=== PATIENT | male | born 1965 | race Caucasian/White ===

== ENCOUNTER 2019-07-06 12:26 | Emergency (ER) | payer BC, SELFPAY ==
[2019-07-06 12:26] VITALS: BP 163/113; PULSE 69; RESP 18; TEMP 36.6; O2SAT 100; BMI 29.1
--- NOTE | 2019-07-06 12:37 | EKG12_ITS ---
Test Reason : SOB Blood Pressure : / mmHG Vent. Rate : 067 BPM Atrial Rate : 067 BPM P-R Int : 140 ms QRS Dur : 088 ms QT Int : 366 ms P-R-T Axes : 029 031 016 degrees QTc Int : 386 ms Normal sinus rhythm Normal ECG Confirmed by ERIKA SEQUEIRA, VISHAL ([id number]), web editor JULISA CHUA ([id number]) on 07/08/2019 8:31:30 AM Referred By: KARLIE Confirmed By:VISHAL JAMES MD
--- NOTE | 2019-07-06 12:37 | RAD_ITS ---
STUDY: X-RAY CHEST REASON FOR EXAM: Male, 54 years old. COUGH. HX OF CHEMO TECHNIQUE: Single AP portable view of the chest. COMPARISON: March 30, 2015 x-ray FINDINGS: There is minimal stable biapical thickening. There is no visualized focal infiltrate. There is no demonstrated pleural abnormality. Normal size heart. Normal mediastinum and bryanna. Normal visualized pulmonary arteries. Normal visualized aortic arch and descending thoracic aorta. There are diffuse degenerative changes of the visualized thoracic spine. Normal visualized ribs, clavicles, and shoulders. There is no demonstrated abnormality of the visualized soft tissue structures of the upper abdomen. RAD/Chest 1 View (Portable) IMPRESSION: Degenerative changes, as described above. No demonstrated acute cardiopulmonary process. Electronically Signed: Nahomy Allne MD at 13:08 EDT Tel , Service support ,
[2019-07-06] MEDS: Ipratropium/Albuterol Sulfate 3 ML AMPUL.NEB INHALATION (13:01)
[2019-07-06 13:05] VITALS: PULSE 73; RESP 16; O2SAT 100
--- NOTE | 2019-07-06 13:08 | ED.VISSUMM ---
- ER Visit Summary Date of Service: 07/06/19 Chief Complaint: Shortness of breath History of Present Illness: The patient is a 54 M presenting with shortness of breath. He states this started on Sunday. He has been using his inhaler for his asthma at home. On he called his primary care physician. At that time he was called in [facility]. When this was not helping on Sunday he again called his primary care physician and was prescribed prednisone. He has been taking this for the past 2 days. He complains of a chest tightness that is similar to the tightness he has when he has had asthma exacerbations in the past. He denies chest pain or pressure. He is not a smoker. He denies fever. He has had a productive cough. 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 He is not currently on anticoagulants. History of tongue cancer in remission. Physical Examination: Vitals are stable. Patient is afebrile. Alert no acute distress. Pulse ox 100% on room air. HEENT exam is unremarkable. Pharynx is normal. Neck is supple. Lungs are clear and equal bilaterally. Heart is regular rate and rhythm. Abdomen is soft nontender nondistended. Extremities are unremarkable. Skin is warm and dry. No rash No focal neurologic deficit. Remainder of exam is unremarkable. Emergency Department Course and Treatment: Patient was given DuoNeb aerosol. EKG is sinus rhythm rate of 67 with no acute ischemic changes. Chest x-ray shows degenerative changes. No demonstrated acute cardiopulmonary process. CBC, chemistries unremarkable other than glucose 120, BUN 28. Troponin is negative. D-dimer negative. Influenza and RSV are negative. On reevaluation patient complains of feeling anxious. He was given Ativan with some improvement. Delta troponin is obtained and is negative. Patient has history of bronchitis that has been improved with Zithromax in the past. He is given a prescription for Zithromax. He is advised to continue his prednisone and albuterol at home. Advised to continue social distancing and self quarantine. Advised to follow up with his primary care physician. Advised return ED for worsening complaints. Disposition: Discharge home Impression: Asthma, bronchitis This note was generated with Friendsigniaation software. It may contain incorrect words, spelling, and punctuation that were not noted in review of the chart prior to signing ED Disposition - Plan for ED Patient: Instructions: BRONCHITIS, Antiobiotic Treatment (Adult) Prescriptions: Azithromycin [Zithromax Z-Shad] 250 mg PO UD #1 box Prescription Printed Referrals: Óscar Gordon MD [Primary Care Provider] -
[2019-07-06 13:11] LABS: Absolute Lymphocyte Count 0.55 X10^3/uL (0.83-4.51); Absolute Neutrophil Count 7.8 X10^3/uL (2.0-7.7); Basophil# 0.05 X10^3/uL; Basophil% 0.6 % (0-1); Eosinophil# 0.02 X10^3/uL; Eosinophils% 0.2 % (0-5); Hematocrit 41.8 % (40-54); Hemoglobin 14.1 g/dL (13.0-16.5); Lymphocyte # 0.55 X10^3/ul (4.0); Lymphocyte % 6.2 % (19-41); Mean Corp Hgb Conc 33.7 g/dL (32-36); Mean Corpuscular Hgb 32.3 pg (27.0-32.0); Mean Corpuscular Volume 95.9 fL (80-94); Mean Platelet Vol. 9.5 fl (6.2-12.0); Monocyte# 0.36 X10^3/uL; Monocyte% 4.1 % (0-10); NRBC Flagged by Analyzer 0 % (0-5); Neutrophil # 7.81 X10^3/uL (2.7-7.7); Neutrophil % 88.4 % (47-70); POSITIVE DIFFERENTIAL YES; Platelet Count 192 K/mm3 (150-450); RBC Distribution Width CV 12.2 % (11.6-14.6); RBC Distribution Width SD 42.9 fl (35.1-43.9); Red Blood Count 4.36 M/mm3 (4.6-6.2); White Blood Count 8.8 K/mm3 (4.4-11.0)
[2019-07-06 13:12] LABS: Differential Indicated SCAN CRITERIA MET
[2019-07-06 13:31] LABS: D-Dimer Quantitative (DVT/PE) <= 0.27 FEU/ug/m (0.27-0.49)
[2019-07-06 13:34] LABS: Anion Gap 8 (5-15); BUN 28 mg/dL (7-18); BUN/Creat Ratio 23.7 RATIO (10-20); Calcium,Total 9.3 mg/dL (8.5-10.1); Chloride 107 mmol/L (98-107); Creatinine, Serum 1.18 mg/dL (0.70-1.30); EST Glomerular Filtration Rate 68 mL/min (>60); Est Glom Filt Rate - Afr Amer 82 mL/min (>60); Estimated Creatinine Clearance 76.72 ml/min; Glucose 120 mg/dL (74-106); Potassium 4.7 mmol/L (3.5-5.1); Sodium Level 140 mmol/L (136-145)
[2019-07-06] MEDS: LORazepam 1 MG Tablet PO (14:16)
[2019-07-06 15:00] VITALS: BP 153/95; PULSE 67; RESP 20; O2SAT 99
[2019-07-06 17:00] VITALS: BP 160/91; PULSE 66; RESP 18; TEMP 37.1; O2SAT 99
--- NOTE | 2019-07-06 17:10 | ED.DEP ---
ED Disposition - Plan for ED Patient: Instructions: BRONCHITIS, Antiobiotic Treatment (Adult) Prescriptions: Azithromycin [Zithromax Z-Shad] 250 mg PO UD #1 box Referrals: Óscar Gordon MD [Primary Care Provider] -
[2019-07-06] MEDS: Azithromycin 250 MG Tablet 500 MG PO (17:32)
== END 2019-07-06 18:07 | disposition home or self-care (01) ==
LOC: ED 13:25
PROVIDERS: Emergency Provider Emergency Medicine; PCP Family Medicine
DX: J45.909 Unspecified asthma, uncomplicated (principal); Z86.711 Personal history of pulmonary embolism; Z85.810 Personal history of malignant neoplasm of tongue; Z79.51 Long term (current) use of inhaled steroids; Z79.52 Long term (current) use of systemic steroids
CPT/HCPCS: 71045; 80048; 84484; 85025; 85379; 87804; 87807; 93005; 94640; 99285; A4216

== ENCOUNTER → 2020-03-30 09:01 | Outpatient (CLI) | payer BC, SELFPAY ==
--- NOTE | 2020-03-30 09:06 | RAD_ITS ---
STUDY: X-RAY CHEST REASON FOR EXAM: Male, 55 years old. HX OF TONGUE SARCOMA -- FOLLOW UP 5 YEARS POST -- NO CHEST COMPLAINTS TECHNIQUE: PA and lateral views of the chest. COMPARISON: July 06, 2019 FINDINGS: There are chronic and mild interstitial fibrotic changes of the lungs. Cystic emphysematous changes are present bilaterally. No focal consolidation is seen. There is no demonstrated pleural abnormality. Normal size heart. Normal mediastinum and bryanna. Normal visualized pulmonary arteries. Normal visualized aortic arch and descending thoracic aorta. There are diffuse degenerative changes of the visualized thoracic spine. Normal visualized ribs, clavicles, and shoulders. There is no demonstrated abnormality of the visualized soft tissue structures of the upper abdomen. RAD/Chest PA and Lateral IMPRESSION: 1. There are chronic and mild interstitial fibrotic changes of the lungs. Cystic emphysematous changes are present bilaterally. No focal consolidation is seen. Electronically Signed: Urban Chavez MD at 23:52 EST , Service support ,
== END ==
PROVIDERS: PCP Family Medicine; Visit Provider Otolaryngology
DX: Z85.810 Personal history of malignant neoplasm of tongue (principal)
CPT/HCPCS: 71046

== ENCOUNTER 2020-05-06 18:22 | Emergency (ER) | payer BC, SELFPAY ==
[2020-05-06 18:22] VITALS: BP 153/101; PULSE 89; RESP 16; TEMP 36.2; O2SAT 98
[2020-05-06 18:23] VITALS: BP 153/101; PULSE 81; RESP 16; TEMP 36.2; O2SAT 97; BMI 29.9
--- NOTE | 2020-05-06 18:38 | EKG12_ITS ---
Test Reason : HYPERTENSION Blood Pressure : / mmHG Vent. Rate : 078 BPM Atrial Rate : 078 BPM P-R Int : 142 ms QRS Dur : 084 ms QT Int : 358 ms P-R-T Axes : 025 019 -06 degrees QTc Int : 408 ms Normal sinus rhythm Normal ECG Confirmed by TIKI SEQUEIRA, LEORA ([id number]), editor at large ALEXIS DAY ([id number]) on 05/11/2020 10:45:11 AM Referred By: HI CÁRDENAS Confirmed By:LEORA FAIRBANKS MD
--- NOTE | 2020-05-06 18:40 | ED.DCSUM_ITS ---
History of Present Illness Chief Complaint: Hypertension Informant: Patient Onset: Weeks Context: Gradual Onset Timing: Intermittent Current Severity: Mild Maximum Severity: Moderate Narrative: The patient is a 55-year-old male with medical history significant for hypertension who presents to the emergency department with elevated blood pressure. The patient states that he has been compliant with his 100 mg of metoprolol and 40 mg of lisinopril. He states he has been checking his blood pressure in the evenings. He states for the past week, he has been markedly e levated with blood pressures in the 180s to 200s. He states when is high, he will have a mild frontal headache which then resolves. He denies chest pain or shortness of breath. He denies visual change. He denies any weakness or numbness. He states he is otherwise been in his normal state of health. Prior similar symptoms: Yes Recent Illness/Hospitalization: No Past Medical History - Allergies and Home Meds Allergies/Adverse Reactions: Allergies No Known Allergies Allergy (Verified 05/06/20 18:55) Primary Care Physician: Óscar Gordon MD [Primary Care Provider] - Prior records reviewed: Yes Past Medical History: - - Hypertension, hyperlipidemia Surgical History: noncontributory Smoking Status: Never smoker Review of Systems General: Denies: Chills, Fever, Sweats Eyes: Denies: Visual changes - bilaterally, Diplopia ENT: Denies: Rhinorrhea, Sore throat Cardiovascular: Denies: Chest pain, Palpitations Respiratory: Denies: Dyspnea, Cough, Dyspnea on exertion Gastrointestinal: Denies: Abdominal pain, Nausea, Vomiting, Diarrhea, Melena, Hematochezia Genitourinary: Denies: Dysuria, Hematuria, Frequency Musculoskeletal: Denies: Back pain, Extremity Pain Skin: Denies: Rash, Wounds Neurological: Denies: Headache, Weakness, Numbness Physical Exam Vital Signs/Narrative: Vital Signs Temp Pulse Resp BP Pulse Ox 05/06/20 18:23 97.1 F L 81 16 153/101 H 97 05/06/20 18:22 97.1 F L 89 16 153/101 H 98 Inital Vital Signs reviewed: Yes General: Well nourished, Well developed, No Acute Distress Head: Normocephalic, Atraumatic Eyes: Perrl, EOMI ENT: Moist mucous membranes, No rhinorrhea Neck: Supple, Nontender Cardiovascular: Regular rate, Regular rhythm, No murmurs Respiratory: No distress, CTA bilaterally, Chest nontender Abdomen: Soft, Nontender, Nondistended, Normal bowel sounds Back: Nontender, Normal Inspection Extremities: Nontender, No edema Skin: Normal color, No rash Neurological: Alert, Oriented x3, Cranial nerves II-XII grossly intact, Normal Strength, Normal Sensation Psychological: Normal affect, Normal Mood Diagnostic/Tx/Re-eval - Rhythm Strip Rhythm Strip: Sinus Rhythm Rate: 80 Ectopy: None - EKG Initial EKG Interpretation: Sinus Rhythm, No Acute Injury Pattern Prior: Unchanged - Medical Decision Making The patient presents with elevated blood pressure. On arrival, his blood pressure is minimally elevated but improved from prior. He had no chest pain or shortness of breath. His neurologic exam is reassuring. He is not cephalopathic. He has no focal neurologic complaints. Metabolic work-up was pursued. EKG demonstrates sinus rhythm. There is no acute ischemic change. Screening labs are unremarkable. On reevaluation, he is resting comfortably. The patient is already on 100 mg of Toprol and 40 mg of lisinopril. He has been having elevated blood pressure. With mild headache. I do feel that it would be prudent to start him twice a day dosing of his metoprolol on top of these other medications to see if we get his blood pressure under better control and have him follow-up with his primary care. He is a able with this plan of care. Impression 1. Hypertension ED Disposition - Plan for ED Patient: Instructions: ED Hypertension, New (Begin Treatment) Prescriptions: Metoprolol Tartrate 50 mg PO DINNER #30 tab Prescription Printed Referrals: Óscar Gordon MD [Primary Care Provider] -
[2020-05-06] MEDS: Acetaminophen 500 MG Tablet 1000 MG PO (19:05)
[2020-05-06 19:07] LABS: Absolute Lymphocyte Count 0.91 X10^3/uL (0.83-4.51); Absolute Neutrophil Count 5.4 X10^3/uL (2.0-7.7); Basophil# 0.04 X10^3/uL; Basophil% 0.6 % (0-1); Eosinophil# 0.14 X10^3/uL; Hematocrit 38.8 % (40-54); Hemoglobin 13.4 g/dL (13.0-16.5); Lymphocyte # 0.91 X10^3/ul (4.0); Lymphocyte % 12.9 % (19-41); Mean Corp Hgb Conc 34.5 g/dL (32-36); Mean Corpuscular Hgb 32.9 pg (27.0-32.0); Mean Corpuscular Volume 95.3 fL (80-94); Mean Platelet Vol. 9.3 fl (6.2-12.0); Monocyte# 0.57 X10^3/uL; Monocyte% 8.1 % (0-10); NRBC Flagged by Analyzer 0 % (0-5); Neutrophil # 5.38 X10^3/uL (2.7-7.7); Neutrophil % 75.8 % (47-70); Platelet Count 188 K/mm3 (150-450); RBC Distribution Width CV 12.2 % (11.6-14.6); RBC Distribution Width SD 42.6 fl (35.1-43.9); Red Blood Count 4.07 M/mm3 (4.6-6.2); White Blood Count 7.1 K/mm3 (4.4-11.0)
[2020-05-06 19:23] LABS: ALB/GLOB Ratio 1.4 RATIO (0.9-2.4); AST(SGOT) 38 U/L (15-37); Alanine Aminotransfer ALT/SGPT 114 U/L (16-61); Alkaline Phosphatase 59 U/L (45-117); Anion Gap 5 (5-15); BUN 23 mg/dL (7-18); BUN/Creat Ratio 16.9 RATIO (10-20); Calcium,Total 9.2 mg/dL (8.5-10.1); Chloride 105 mmol/L (98-107); Creatinine, Serum 1.36 mg/dL (0.70-1.30); EST Glomerular Filtration Rate 57 mL/min (>60); Est Glom Filt Rate - Afr Amer 69 mL/min (>60); Estimated Creatinine Clearance 67.73 ml/min; Globulin 2.9 g/dL (2.2-4.2); Glucose 101 mg/dL (74-106); Potassium 4.2 mmol/L (3.5-5.1); Protein, Total 6.9 g/dL (6.4-8.2); Sodium Level 138 mmol/L (136-145)
[2020-05-06 19:35] VITALS: BP 152/92; PULSE 69; RESP 17; O2SAT 97
[2020-05-06 19:43] VITALS: BP 152/92; PULSE 69; RESP 17; O2SAT 97
== END 2020-05-06 19:44 | disposition home or self-care (01) ==
LOC: ED 19:04
PROVIDERS: Emergency Provider Emergency Medicine; PCP Family Medicine
DX: I10 Essential (primary) hypertension (principal); E78.5 Hyperlipidemia, unspecified; Z79.899 Other long term (current) drug therapy
CPT/HCPCS: 80053; 85025; 93005; 99285; A4216

== ENCOUNTER 2020-05-07 20:26 | Emergency (ER) | payer BC, SELFPAY ==
[2020-05-06 18:23] VITALS: BMI 29.9
[2020-05-07 20:28] VITALS: BP 228/120; PULSE 71; RESP 15; TEMP 36.6; O2SAT 99; BMI 28.8
--- NOTE | 2020-05-07 20:47 | CT_ITS ---
STUDY: CT BRAIN WITHOUT CONTRAST REASON FOR EXAM: Male, 55 years old. Headache. Hypertension. History of tongue cancer. RADIATION DOSAGE (If Supplied By Facility): CTDIvol = ( 44.99 ) mGy, DLP = ( 846.73 ) mGycm TECHNIQUE: Transaxial CT imaging of the brain was performed without administration of intravenous contrast material. Individualized dose optimization techniques were used for this CT. COMPARISON: None. FINDINGS: There is no acute bleed or infarct. There are normal white matter tracts. The ventricles are normal in configuration. There is no hydrocephalus. The visualized paranasal sinuses are clear. The mastoid air cells are well aerated. There is no skull fracture. CT/Brain/Head without Contrast IMPRESSION: No acute intracranial abnormality. Electronically Signed: Andrew Flowers MD at 21:13 EST Tel , Service support ,
[2020-05-07 21:38] VITALS: BP 154/90; PULSE 62; RESP 16; O2SAT 98
--- NOTE | 2020-05-07 21:42 | ED.DCSUM_ITS ---
- ER Visit Summary Date of Service: 05/07/20 Chief Complaint: High blood pressure and headache History of Present Illness: The patient is a [address] Gordon. He reports that his blood pressures been much higher than usual over the past 3 days. He was seen in the emergency department yesterday and had 50 mg of metoprolol added in the evening. He spoke with his primary care physician today and he told him to increase this to 100 mg. He took this at 430. Despite that his blood pressures remained elevated. Patient reports that he has an aching frontal headache that is 6 out of 10 at worst and 1 out of 10 currently. He took Tylenol with significant relief. He states that nothing makes this worse. He denies any other complaints. No chest pain or shortness of breath. Physical Examination: Vitals: 97.9, 228/120, 71, 15, 99% on room air which is not hypoxic. General: Well-nourished and well-developed. Head: Normocephalic atraumatic. Neck: Supple, no lymphadenopathy. No JVD. Nontender. Cardiovascular: Regular rate and rhythm. No murmurs. Respiratory: No respiratory distress. Clear to auscultation bilaterally. Abdominal: Soft, nontender, nondistended, normal bowel sounds. No guarding, rebound, or peritoneal signs. Back: Nontender. Extremities: Nontender, no edema. Skin: Normal color, no rash. Neurologic: Alert and oriented ?3. Cranial nerves II through XII are intact. Normal strength and sensation. Psych: Normal affect. Test Results: Clinical Impression(s) from Imaging Studies Brain CT 05/07/20 20:47 IMPRESSION: No acute intracranial abnormality. Electronically Signed: Andrew Flowers MD at 21:13 EST Tel , Service support , Patient had labs yesterday that were not repeated. His CBC showed a hematocrit of 38.8, segmented for 72, lymphocytes 13. CMP showed a BUN of 23, creatinine 1.36, AST of 38, ALT of 114. Emergency Department Course and Treatment: Patient was observed in the emergency department. He refused pain medications. Without any treatment of his blood pressure decreased to 131/83. He is resting comfortably. Treatment Plan: At this time I don't think that any change the patient's blood pressure medication is indicated. He is instructed to continue to take the increased dose of metoprolol as recommended by his primary care physician. Follow-up with him in 3 to 5 days for another exam. Return to the emergency department for any worsening symptoms. Disposition: To home in improved and stable condition. Impression: 1. Hypertension. 2. Headache. This note was generated with Janalakshmiation software. It may contain incorrect words, spelling, and punctuation that were not noted in review of the chart prior to signing ED Disposition - Plan for ED Patient: Instructions: ED High Blood Pressure ... Referrals: Óscar Gordon MD [Primary Care Provider] - 3-5 Days
[2020-05-07 21:59] VITALS: BP 137/84
== END 2020-05-07 22:05 | disposition home or self-care (01) ==
LOC: ED 21:05
PROVIDERS: Emergency Provider Emergency Medicine; PCP Family Medicine
DX: R51.9 Headache, unspecified (principal); I10 Essential (primary) hypertension; J45.909 Unspecified asthma, uncomplicated; Z79.899 Other long term (current) drug therapy; Z79.51 Long term (current) use of inhaled steroids
CPT/HCPCS: 70450; 99283

== ENCOUNTER 2020-09-21 10:13 | Emergency (ER) | payer BC, SELFPAY ==
[2020-09-21 10:14] VITALS: BP 132/85; PULSE 74; RESP 18; TEMP 36.8; O2SAT 97; BMI 30.1
--- NOTE | 2020-09-21 10:29 | CT_ITS ---
STUDY: CTA CHEST REASON FOR EXAM: Male, 55 years old. SOB, suspect PE RADIATION DOSAGE (If Supplied By Facility): CTDIvol = ( 11.20 ) mGy, DLP = ( 445.70 ) mGycm TECHNIQUE: The examination was performed with the intravenous administration of IV 100mL Isovue-370. Post-processing of the angiographic images was performed, with multiplanar reformation and 3D reconstruction. Individualized dose optimization techniques were used for this CT. COMPARISON: Comparison is made with prior CT scan of the chest dated 12/13/2015. FINDINGS: Normal enhancement of the main pulmonary artery and right and left pulmonary arteries. Normal enhancement of the bilateral peripheral pulmonary arteries. There is no demonstrated pulmonary embolism. Normal thoracic aorta and visualized great vessels. There is no demonstrated aortic dissection. Normal heart and pericardium. Normal mediastinum. Normal hilar regions. Normal visualized trachea and bronchi. The lungs are well expanded. Minimal increased linear markings at the lung bases suggest mild atelectasis and/or scarring. Normal pleura. Normal chest wall structures. Normal osseous structures. There is diffuse fatty infiltration of liver. CT/CTA Chest W/WO Contrast IMPRESSION: No acute abnormality is seen. Electronically Signed: Bernardo Orellana MD at 12:06 EDT , Service support ,
--- NOTE | 2020-09-21 10:29 | EKG12_ITS ---
Test Reason : SOB Blood Pressure : / mmHG Vent. Rate : 068 BPM Atrial Rate : 068 BPM P-R Int : 150 ms QRS Dur : 086 ms QT Int : 374 ms P-R-T Axes : 018 009 001 degrees QTc Int : 397 ms Normal sinus rhythm Cannot rule out Inferior infarct , age undetermined Abnormal ECG Confirmed by ERIKA SEQUEIRA, VISHAL ([id number]), brands editor ALEXIS DAY ([id number]) on 09/24/2020 8:24:43 AM Referred By: Confirmed By:VISHAL JAMES MD
--- NOTE | 2020-09-21 10:29 | RAD_ITS ---
STUDY: X-RAY CHEST REASON FOR EXAM: Male, 55 years old. Chest pain TECHNIQUE: Single AP portable view of the chest. COMPARISON: Comparison is made with prior chest radiograph dated 03/30/2020. FINDINGS: EKG electrodes are seen. The lungs are clear and expanded. There is no demonstrated pleural abnormality. Normal size heart. Normal mediastinum and bryanna. Normal visualized pulmonary arteries. Normal visualized aortic arch and descending thoracic aorta. There are diffuse degenerative changes of the visualized thoracic spine. Normal visualized ribs, clavicles, and shoulders. There is no demonstrated abnormality of the visualized soft tissue structures of the upper abdomen. RAD/Chest 1 View (Portable) IMPRESSION: No acute abnormality is seen. Electronically Signed: Bernardo Orellana MD at 12:03 EDT , Service support ,
--- NOTE | 2020-09-21 10:43 | ED.VIS.DYS ---
HPI History of Present Illness Chief Complaint: Shortness of Breath Informant: patient Narrative Narrative: Patient is a 55-year-old man with history of tongue cancer, bilateral PE and asthma presenting with shortness of breath. Patient states for the past few days he has had worsening fatigue and dyspnea on exertion. He states whenever he does minimal exertion like changing the sheets or getting ready to leave the house he gets a tightness in his chest. When he sits down he starts to feel better. Patient notes that he just recently turned from [place]. He states he is not any blood thinners and denies a history of blood clots to me however chart me shows he has a history of bilateral PEs. Patient also notes that he had Covid in January and just had a second Covid vaccine 10 days ago. Patient denies any chest pain. He states he has a chronic cough which is unchanged. He Nuys any fever or chills. He denies any sick contacts. He denies any history of coronary artery disease and remotely had a stress test in the past that he thinks was normal. He has hypertension and borderline hyper lipidemia but does not take any medication for his cholesterol. He does have a history of mitral valve prolapse. PE Risk Factors: Positive for Prior DVT or PE and Recent travel [facility] Medical History (Updated 09/21/20 @ 14:[address] Leslie Willoughby, ) History of esophageal cancer History of pulmonary embolus (PE) Hypertension Home Medications albuterol sulfate [ProAir HFA] 2 puff INHALATION Q4H PRN PRN 02/01/15 [History Last Taken Unknown] metoprolol tartrate 100 mg PO DAILY 02/01/15 [History Last Taken 02/01/15] lorazepam 0.5 mg PO BID PRN 03/24/15 [History Last Taken Unknown] fluticasone propion-salmeterol 1 puff INHALATION BID 05/06/20 [History Last Taken Unknown] lisinopril 40 mg PO DAILY 05/06/20 [History Last Taken Unknown] prednisone 40 mg PO DAILY #10 tab 09/21/20 [Rx Last Taken Unknown] Allergy/AdvReac Type Severity Reaction Status Date / Time No Known Allergies Allergy Verified 09/21/20 10:14 Social History Smoking Status: Never smoker [facility] ED Constitutional Constitutional ED: Reports sweats; Denies chills, fatigue, fever(s) or weakness Eyes Eyes: Denies blurry vision or other visual disturbances ENT ENT ED: Denies rhinorrhea or sore throat Cardiovascular Cardiovascular: Reports chest pain; Denies orthopnea, palpitations or racing heartbeat Respiratory/Chest Respiratory/Chest: Reports dyspnea and dyspnea on exertion; Denies cough, orthopnea or sputum Gastrointestinal Gastrointestinal: Denies abdominal pain, nausea or vomiting Genitourinary Genitourinary ED: Denies decreased urination or dysuria Musculoskeletal Musculoskeletal: Reports other Details: no leg swelling ; Denies extremity pain Integumentary Denies new lesions or rash Neurologic Neurologic: Denies paresthesias or weakness Psychiatric Psychiatric: Denies anxiety or depression Hematologic/Lymphatic Hematologic/Lymphatic: Denies easy bleeding or easy bruising EXAM Physical Exam Const Vital Signs: 09/21/20 10:14 09/21/20 10:29 09/21/20 10:47 Temperature 98.3 F Temperature Source Temporal Pulse Rate 74 75 Respiratory Rate 18 16 Respiratory Effort Respiratory Pattern Blood Pressure 132/85 H 103/64 Blood Pressure Mean 100 77 Pulse Ox 97 99 Oxygen Delivery Method Room Air Room Air Room Air 09/21/20 10:49 09/21/20 11:35 09/21/20 12:41 Temperature Temperature Source Pulse Rate 64 71 Respiratory Rate 13 13 Respiratory Effort Normal Respiratory Pattern Normal Blood Pressure 139/86 H Blood Pressure Mean 103 Pulse Ox 97 Oxygen Delivery Method Room Air Positive alert and oriented x3 General Appearance ED: Negative for pallor HEENT Reports normocephalic and moist mucous membranes normocephalic Mouth ED: Yes moist mucous membranes normal Eyes PERRL and EOMs intact bilaterally General Eye ED: Yes normal appearance of both eyes Pupil: PERRL Neck supple and no JVD Lymph Lymphatic: no lymphadenopathy noted Chest Wall inspection of chest normal and palpation of chest normal Resp normal respiratory effort, normal air movement and clear to auscultation bilaterally Auscultation: Negative for rhonchi or wheezes Cardio regular rate and regular rhythm Peripheral Pulses: pulses 2+ throughout GI non-tender and non-distended Palpation: soft Back/Spine no CVA tenderness and normal to inspection Extremity normal to inspection and full ROM Neuro oriented x3, moves all extremities and no focal motor deficits Sensorium / Orientation: alert Psych mental status grossly normal and thought process normal Skin no rashes or lesions noted and no petechiae General Skin Exam: Negative for pallor Lesions: no lesions Rashes: no rashes MDM MDM MDM Narrative Medical decision making narrative: Patient is evaluated for chest tightness associated with exertion. Is intermittent and not all the time. Clinically does not appear to be fluid overloaded or to have CHF. I did obtain a CTA because I have a high pretest suspicion for PE and he does have a history of bilateral PE. This is negative. There is no acute pathology seen on the CT. Cardiac work-up is negative. He does not have any ischemic EKG changes and does not have any acute EKG changes at all. Troponin is negative x2. His BNP is 3.8. His TSH is normal. No signs of infection. He is not anemic. I wonder if this could be some type of asthma exacerbation as he does not like his asthma is been acting up more. He is given an aerosol in the emergency room will be discharged home with a burst of steroids. Patient is instructed needs to follow-up outpatient with his PCP as he likely needs a stress test. Patient is counseled on signs and symptoms requiring return to the emergency room. Patient verbalizes agreement and understand this plan. Patient discharged home in stable and improved condition. Lab Data Labs: Laboratory Results - last 24 hr 09/21/20 09/21/20 09/21/20 10:41 10:41 10:41 WBC 5.8 RBC 4.21 L Hgb 13.8 Hct 39.7 L MCV 94.3 H MCH 32.8 H MCHC 34.8 RDW Std Deviation 40.4 RDW Coeff of Portia 11.7 Plt Count 201 MPV 9.1 Immature Gran % (Auto) 0.900 Neut % (Auto) 73.2 H Lymph % (Auto) 12.6 L Fulton % (Auto) 10.0 Eos % (Auto) 2.4 Baso % (Auto) 0.9 Absolute Neuts (auto) 4.3 Absolute Lymphs (auto) 0.73 L Nucleated RBC % 0 Sodium 135 L Potassium 4.7 Chloride 104 Carbon Dioxide 26.0 Anion Gap 5 BUN 22 H Creatinine 1.09 Estim Creat Clear Calc 82.07 Est GFR (MDRD) Af Amer 90 Est GFR (MDRD) Non-Af 74 BUN/Creatinine Ratio 20.2 H Glucose 122 H Calcium 8.8 Troponin I < 0.015 B-Natriuretic Peptide 3.8 TSH 2.11 09/21/20 13:53 WBC RBC Hgb Hct MCV MCH MCHC RDW Std Deviation RDW Coeff of Portia Plt Count MPV Immature Gran % (Auto) Neut % (Auto) Lymph % (Auto) Fulton % (Auto) Eos % (Auto) Baso % (Auto) Absolute Neuts (auto) Absolute Lymphs (auto) Nucleated RBC % Sodium Potassium Chloride Carbon Dioxide Anion Gap BUN Creatinine Estim Creat Clear Calc Est GFR (MDRD) Af Amer Est GFR (MDRD) Non-Af BUN/Creatinine Ratio Glucose Calcium Troponin I < 0.015 B-Natriuretic Peptide TSH Radiography Chest X-Ray - ED: 1 View, Read by ED Physician, Read by Radiologist and Normal Diagnostic Testing: Radiology Impression Chest CTA 09/21/20 10:29 IMPRESSION: No acute abnormality is seen. Electronically Signed: Bernardo Orellana MD at 12:06 EDT , Service support , Chest X-Ray 09/21/20 10:29 IMPRESSION: No acute abnormality is seen. Electronically Signed: Bernardo Orellana MD at 12:03 EDT , Service support , Rhythm Strip Rhythm Strip: Sinus Rhythm Rate: 68 Ectopy: None EKG Initial EKG: Attestation: I personally reviewed and interpreted this EKG as follows: Interpretation: Sinus Rhythm Comments: Normal sinus rhythm at a rate of 68 Normal axis Normal intervals Nonspecific T wave inversion lead III No change compared to prior EKG on 07/06/2019 Discharge Plan Triage Chief Complaint: Shortness of Breath ED Provider: Leslie Willoughby Dx/Rx/DC Orders Clinical Impression: Acute dyspnea Instructions: ED Asthma, Acute (Adult), ED Dyspnea Prescriptions: New prednisone 20 mg tablet 40 mg PO DAILY Qty: 10 RF: 0 No Action metoprolol tartrate 50 MG tablet 100 mg PO DAILY RF: 0 albuterol sulfate [ProAir HFA] 1 PUFF inhaler 2 puff inhalation Q4H PRN PRN (Reason: Sob &/Or Wheezing) RF: 0 lorazepam 0.5 MG tablet 0.5 mg PO BID PRN (Reason: Anxiety) RF: 0 fluticasone propion-salmeterol 1 EACH blister with device 1 puff INHALATION BID RF: 0 lisinopril 40 MG tablet 40 mg PO DAILY RF: 0 Primary Care Provider: Óscar Gordon Referrals: Óscar Gordon MD [Primary Care Provider] - Activity Restrictions/Additional Instructions: The exact cause of your symptoms is not clear however your work-up here was largely normal. He did not appear to be having a heart attack. There is no blood clots. There is no pneumonia. Please follow-up with your primary care doctor for the evaluation of your breathing as well as of your heart. You might benefit from a stress test. Is possible that your symptoms could be associated your asthma to be placed on a short course of steroids for this. Use your inhaler as prescribed. Disposition Disposition: Home, self care
[2020-09-21] MEDS: Aspirin 81 MG TAB.CHEW 324 MG PO (10:45)
[2020-09-21 10:47] VITALS: BP 103/64; PULSE 75; RESP 16; O2SAT 99
[2020-09-21 10:52] LABS: Absolute Lymphocyte Count 0.73 X10^3/uL (0.83-4.51); Absolute Neutrophil Count 4.3 X10^3/uL (2.0-7.7); Basophil# 0.05 X10^3/uL; Basophil% 0.9 % (0-1); Eosinophil# 0.14 X10^3/uL; Eosinophils% 2.4 % (0-5); Hematocrit 39.7 % (40-54); Hemoglobin 13.8 g/dL (13.0-16.5); Lymphocyte # 0.73 X10^3/ul (0.83-4.51); Lymphocyte % 12.6 % (19-41); Mean Corp Hgb Conc 34.8 g/dL (32-36); Mean Corpuscular Hgb 32.8 pg (27.0-32.0); Mean Corpuscular Volume 94.3 fL (80-94); Mean Platelet Vol. 9.1 fl (6.2-12.0); Monocyte# 0.58 X10^3/uL; NRBC Flagged by Analyzer 0 % (0-5); Neutrophil # 4.26 X10^3/uL (2.7-7.7); Neutrophil % 73.2 % (47-70); Platelet Count 201 K/mm3 (150-450); RBC Distribution Width CV 11.7 % (11.6-14.6); RBC Distribution Width SD 40.4 fl (35.1-43.9); Red Blood Count 4.21 M/mm3 (4.6-6.2); White Blood Count 5.8 K/mm3 (4.4-11.0)
[2020-09-21 11:10] LABS: Anion Gap 5 (5-15); BUN 22 mg/dL (7-18); BUN/Creat Ratio 20.2 RATIO (10-20); Calcium,Total 8.8 mg/dL (8.5-10.1); Chloride 104 mmol/L (98-107); Creatinine, Serum 1.09 mg/dL (0.70-1.30); EST Glomerular Filtration Rate 74 mL/min (>60); Est Glom Filt Rate - Afr Amer 90 mL/min (>60); Estimated Creatinine Clearance 82.07 ml/min; Glucose 122 mg/dL (74-106); Potassium 4.7 mmol/L (3.5-5.1); Sodium Level 135 mmol/L (136-145); Thyroid Stim Hormone (TSH) 2.11 uIU/mL (0.358-3.74)
[2020-09-21 11:20] LABS: BNP,B-Type NATRIURETIC PEPTIDE 3.8 pg/mL (0-100)
[2020-09-21] MEDS: Albuterol 2.5 MG/3 ML VIAL.NEB. INHALATION (11:34)
[2020-09-21 11:35] VITALS: PULSE 64; RESP 13
[2020-09-21 12:41] VITALS: BP 139/86; PULSE 71; RESP 13; O2SAT 97
[2020-09-21 13:01] VITALS: O2SAT 98
--- NOTE | 2020-09-21 13:10 | CHAPLAIN ---
Type of Pastoral Visit _x__ Initial Visit ___ Follow-up Visit ___ On-call Visit ___ General Patient Visit ___ Spiritual Assessment ___ Family Conference ___ Bereavement ___ Rapid Response ___ Code Blue ___ Other (describe below) Pastoral Care Referral From ___ Patient _x__ Family ___ Nurse ___ Physician ___ Bike Assembler ___ Machine Cementer ___ Other (describe below) Sacrament/Intervention _x__ Active listening ___ Anointing ___ Hindu ___ Bereavement ___ Communion ___ Barb exploration ___ _x__ Life review x Prayer ___ Reconciliation ___ Sacrament of Sick _x__ Supportive presence ___ Wedding ___ Other (describe below) Pastoral Comments
== END 2020-09-21 15:04 | disposition home or self-care (01) ==
PROVIDERS: Emergency Provider Emergency Medicine; PCP Family Medicine
DX: R06.00 Dyspnea, unspecified (principal); E78.5 Hyperlipidemia, unspecified; I10 Essential (primary) hypertension; J45.909 Unspecified asthma, uncomplicated; Z86.718 Personal history of other venous thrombosis and embolism; Z79.51 Long term (current) use of inhaled steroids; Z79.899 Other long term (current) drug therapy
CPT/HCPCS: 71045; 71275; 80048; 83880; 84443; 84484; 85025; 93005; 94640; 99284; Q9967; A4216

== ENCOUNTER → 2020-10-28 06:41 | Outpatient (CLI) | payer BC, SELFPAY ==
--- NOTE | 2020-10-28 18:28 | STRESSREP_ITS ---
Stress Test Report Pharmacologic myocardial perfusion stress test. 55-year-old male with a history of shortness of breath mitral valve prolapse. Medications lisinopril, metoprolol, albuterol. Stress protocol: Resting EKG demonstrates normal sinus rhythm with a rate of 93 bpm normal intervals are noted. Resting EKG demonstrates a blood pressure of 200/110 mmHg. 0.4 mg of regadenoson was infused per usual protocol followed by rapid intravenous saline flush injection continuous EKG monitoring was performed. The maximum heart rate attained was 121 bpm which was 74% of max infected heart rate the maximum workload was 1 metabolic equivalent. At rest there were no ST or T wave changes noted to suggest abnormal flow reserve and at peak infusion nonspecific ST changes were noted with did not meet the criteria for ischemia. No clinical angina was noted. The final blood pressure was 152/98 mmHg. Myocardial perfusion protocol. 14.4 mCi of technetium 99m sestamibi was injected at rest. 0.4 mg of regadenoson was infused per usual protocol. At peak infusion 44.4 mCi of technetium 99m sestamibi was injected stress images were obtained stress and res t images were reconstructed and compared in the short axis vertical long and horizontal long axis. Gated images were also obtained. Perfusion SPECT analysis: Review of the stress images demonstrate normal uptake of tracer noted in all areas of the myocardium. The resting images similarly demonstrate normal uptake of tracer noted in all areas of the myocardium. No areas of reversibility are noted suggest ischemia and no previous infarct is noted. Gated SPECT analysis: The gated ejection fraction is 56%. Conclusion: Normal pharmacologic myocardial perfusion stress test. Preserved ejection fraction. Resting hypertension noted.
== END ==
PROVIDERS: PCP Family Medicine; Referring Provider Family Medicine; Visit Provider Family Medicine
DX: R06.02 Shortness of breath (principal); I10 Essential (primary) hypertension; I34.1 Nonrheumatic mitral (valve) prolapse
CPT/HCPCS: 78452; 93017; A9500; Q9957; A4216; J2785

== ENCOUNTER 2021-04-19 10:06 | Outpatient (CLI) | payer BC, SELFPAY ==
--- NOTE | 2021-04-19 10:20 | RAD_ITS ---
STUDY: X-RAY CHEST REASON FOR EXAM: Male, 56 years old. F/U AFTER TX. FOR HEAD AND NECK CARCINOMA TECHNIQUE: Single AP portable view of the chest. COMPARISON: None. FINDINGS: Ill-defined subpleural groundglass opacities are seen more prominent in the lung bases , may represent atypical pneumonia or viral pneumonia (COVID-19 ?). There is no demonstrated pleural abnormality. Normal size heart. Normal mediastinum and bryanna. Normal visualized pulmonary arteries. Normal visualized aortic arch and descending thoracic aorta. Normal visualized thoracic spine. There is degenerative osteoarthritis of the bilateral shoulders. There is no demonstrated abnormality of the visualized soft tissue structures of the upper abdomen. RAD/Chest PA and Lateral IMPRESSION: Ill-defined subpleural groundglass opacities are seen more prominent in the lung bases , may represent atypical pneumonia or viral pneumonia (COVID-19 ?). Electronically Signed: Rodrigo Licona MD at 2:20 EST Tel , Service support ,
== END 2021-04-19 23:59 | disposition short-term general hospital (02) ==
LOC: RAD 10:09
PROVIDERS: PCP Family Medicine; Referring Provider Otolaryngology; Visit Provider Otolaryngology
DX: Z08 Encounter for follow-up examination after completed treatment for malignant neoplasm (principal); Z85.89 Personal history of malignant neoplasm of other organs and systems
CPT/HCPCS: 71046

== ENCOUNTER 2021-12-19 18:44 | Emergency (ER) | payer BC, SELFPAY ==
[2021-12-19 18:45] VITALS: BP 120/90; PULSE 97; RESP 15; TEMP 36.7; O2SAT 99; BMI 29.1
[2021-12-19 19:10] VITALS: BP 120/90; PULSE 97; RESP 16; TEMP 36.7; O2SAT 99
--- NOTE | 2021-12-19 19:11 | EX.ED.DYSGE1 ---
HPI History of Present Illness Chief Complaint: Cold Sx Informant: patient Onset/Context/Timing Onset: Days (5 days) Context: Gradual Onset Timing: Waxes and wanes Current Severity: Mild Maximum Severity: Mild Narrative Narrative: Patient presents primarily secondary to sore throat. He states he started getting cold-like symptoms on . He has had a sore throat since that time but it did seem to be slightly worse this afternoon. No fevers been noted. He does have a mild cough. [facility] Medical History History of esophageal cancer History of pulmonary embolus (PE) Hypertension Home Medications albuterol sulfate 90 mcg/actuation aerosol inhaler (ProAir HFA) 2 puff inhalation Q4H PRN PRN Sob &/Or Wheezing 02/01/15 [History Last Taken Unknown] metoprolol tartrate 50 mg tablet 100 mg PO DAILY 02/01/15 [History Last Taken 02/01/15] lorazepam 0.5 mg tablet 0.5 mg PO BID PRN Anxiety 03/24/15 [History Last Taken Unknown] fluticasone 100 mcg-salmeterol 50 mcg/dose blistr powdr for inhalation 1 puff inhalation BID 05/06/20 [History Last Taken Unknown] lisinopril 40 mg tablet 40 mg PO DAILY 05/06/20 [History Last Taken Unknown] prednisone 20 mg tablet 40 mg PO DAILY #10 tabs 09/21/20 [Rx Last Taken Unknown] Allergy/AdvReac Type Severity Reaction Status Date / Time No Known Allergies Allergy Verified 12/19/21 18:45 Social History Smoking Status: Never smoker ROS ROS ED Constitutional Constitutional ED: Denies chills or fever(s) Eyes Eyes: Denies change in vision or discharge from eye(s) ENT ENT ED: Reports sore throat and other Details: Mild congestion ; Denies discharge from eye(s) or rhinorrhea Cardiovascular Cardiovascular: Denies chest pain or palpitations Respiratory/Chest Respiratory/Chest: Reports cough; Denies dyspnea Gastrointestinal Gastrointestinal: Denies abdominal pain, diarrhea, nausea or vomiting Genitourinary Genitourinary ED: Denies dysuria Musculoskeletal Musculoskeletal: Denies back pain or extremity pain Integumentary Denies Abrasions or rash Neurologic Neurologic: Denies headache(s) or weakness Allergic/Immunologic Allergic/Immunologic ED: Denies lip swelling or urticaria EXAM Physical Exam Narrative Exam Narrative: Patient speaks with a strong voice and is tolerating secretions well. Const Vital Signs: 12/19/21 18:45 12/19/21 19:10 12/19/21 19:29 Temperature 98.1 F 98.1 F Temperature Source Temporal Oral Pulse Rate 97 97 Respiratory Rate 15 16 Respiratory Effort Normal Non-Labored Respiratory Depth Normal Respiratory Pattern Normal Blood Pressure 120/90 H 120/90 H Blood Pressure Mean 100 100 Pulse Ox 99 99 Oxygen Delivery Method Room Air Room Air Room Air 12/19/21 20:30 Temperature Temperature Source Pulse Rate 99 Respiratory Rate 16 Respiratory Effort Respiratory Depth Respiratory Pattern Blood Pressure Blood Pressure Mean Pulse Ox 98 Oxygen Delivery Method Room Air Positive well nourished and well developed General Appearance ED: well developed HEENT Reports normocephalic and head/scalp atraumatic HEENT Narrative: Mild posterior pharyngeal drainage. Uvula midline. Eyes PERRL and EOMs intact bilaterally Neck supple Chest Wall inspection of chest normal and palpation of chest normal Resp normal respiratory effort and clear to auscultation bilaterally Cardio regular rate and regular rhythm GI normal to inspection, nondistended, normoactive bowel sounds Palpation: soft Extremity normal to inspection Neuro oriented x3 and no sensory deficits noted Sensorium / Orientation: alert Motor Exam: strength 5/5 throughout Psych mental status grossly normal Skin no rashes or lesions noted MDM MDM MDM Narrative Medical decision making narrative: Rapid strep sent along with COVID test. Portable chest x-ray ordered. Patient given naproxen and Cepacol lozenge. Lab Data Attestation: I reviewed the patient's lab results. Lab results narrative: Rapid COVID: Negative Rapid strep: Negative Radiography Chest X-Ray - ED: 1 View, Read by ED Physician, Chronic Changes and No Infiltrates Diagnostic Testing: Clinical Impression(s) from Imaging Studies Chest X-Ray 12/19/21 19:28 IMPRESSION: Mild interstitial thickening in the right lower lobe possibly due to focal inflammatory changes. Electronically Signed: Gerald Mercedes MD at 20:08 EDT , Treatment and Re-Evaluation Narrative: Chest x-ray per my interpretation shows chronic changes with no new focal infiltrate. Strep and COVID test are negative. Test results discussed with patient and at bedside. He is reassured with these findings. We discussed continued supportive care. Discharge Plan Triage Chief Complaint: Cold Sx Other Complaint: Sore Throat ED Provider: Siobhan Kent Dx/Rx/DC Orders Clinical Impression: Acute viral pharyngitis Instructions: ED Pharyngitis, Viral Prescriptions: No Action metoprolol tartrate 50 MG tablet 100 mg PO DAILY Label Comments: blood pressure albuterol sulfate [ProAir HFA] 1 PUFF inhaler 2 puff inhalation Q4H PRN PRN (Reason: Sob &/Or Wheezing) Label Comments: shortness of breath lorazepam 0.5 MG tablet 0.5 mg PO BID PRN (Reason: Anxiety) fluticasone propion-salmeterol 1 EACH blister with device 1 puff INHALATION BID Label Comments: inhale 1 puff by mouth and INTO THE LUNGS twice a day lisinopril 40 MG tablet 40 mg PO DAILY prednisone 20 mg tablet 40 mg PO DAILY Qty: 10 0RF Primary Care Provider: Óscar Gordon Referrals: Óscar Gordon MD [Primary Care Provider] - 1 Week if not improving Disposition Disposition: Home, Self Care
[2021-12-19] MEDS: Naproxen 500 MG Tablet PO (19:23)
--- NOTE | 2021-12-19 19:28 | RAD_ITS ---
STUDY: X-RAY CHEST REASON FOR EXAM: Male, 56 years old. cough TECHNIQUE: AP portable COMPARISON: 04/19/2021 FINDINGS: Mild interstitial prominence in the right lower lobe possibly representing mild infiltrate.. There is no demonstrated pleural abnormality. Normal size heart. Normal mediastinum and bryanna. Normal visualized pulmonary arteries. Normal visualized aortic arch and descending thoracic aorta. Dorsal spine demonstrates degenerative change. Normal visualized ribs, clavicles, and shoulders. There is no demonstrated abnormality of the visualized soft tissue structures of the upper abdomen. RAD/Chest 1 View (Portable) IMPRESSION: Mild interstitial thickening in the right lower lobe possibly due to focal inflammatory changes. Electronically Signed: Gerald Mercedes MD at 20:08 EDT ,
[2021-12-19 19:29] VITALS: O2SAT 99
[2021-12-19] MEDS: BENZOCAINE/MENTHOL 1 LOZENGE MUCOUS MEM (20:18)
[2021-12-19 20:30] VITALS: PULSE 99; RESP 16; O2SAT 98
== END 2021-12-19 20:40 | disposition home or self-care (01) ==
PROVIDERS: Emergency Provider Emergency Medicine; PCP Family Medicine; Visit Provider Emergency Medicine
DX: J02.8 Acute pharyngitis due to other specified organisms (principal); B97.89 Other viral agents as the cause of diseases classified elsewhere; I10 Essential (primary) hypertension; Z79.52 Long term (current) use of systemic steroids; Z79.899 Other long term (current) drug therapy; Z20.822 Contact with and (suspected) exposure to COVID-19
CPT/HCPCS: 71045; 87811; 87880; 99283

== ENCOUNTER 2023-07-20 05:09 | Emergency (ER) | payer BC, SELFPAY ==
[2023-07-20 05:11] VITALS: BP 194/156; PULSE 101; RESP 16; TEMP 36.7; BMI 30.2
[2023-07-20 05:19] VITALS: BP 197/100; PULSE 92
--- NOTE | 2023-07-20 05:30 | CT_ITS ---
EXAM: CT CERVICAL SPINE WITHOUT INTRAVENOUS CONTRAST CLINICAL INDICATION: Seroma TECHNIQUE: Helically acquired images were obtained of the cervical spine without intravenous contrast. 2D reformatted images were reviewed. This CT exam was performed using one or more of the following dose reduction techniques: automated exposure control, adjustment of the mA and/or kV according to patient size, and/or use of iterative reconstruction technique. RADIATION DOSE: Total DLP: 607.82 mGy-cm. COMPARISON: No relevant prior studies available. FINDINGS: Images are seen on a delayed basis. VERTEBRAE: Cervical vertebrae demonstrate normal curvature and alignment. No compression fracture, posterior element fracture or facet dislocation. The odontoid is intact. Left-sided laminectomy defects noted at the C3, C4, C5, and C6 levels. No abnormal fluid collection is seen in the region of the laminectomies, but there is an elongated midline fluid collection posterior to the C3-C7 spinous processes, with this thick-walled fluid collection measuring up to 3 cm in AP diameter by 2.5 cm in transverse diameter, by approximately 5 cm in cephalocaudal dimension. The fluid collection shows a thickened wall with surrounding fat stranding. The fluid collection does not definitely extend to the skin surface. No air bubbles are seen within this fluid collection. There is no associated destruction of the spinous processes. DISCS/SPINAL CANAL/NEURAL FORAMINA: The mid to lower cervical disc spaces show degenerative narrowing with endplate sclerosis, marginal osteophytes and uncinate hypertrophy. Broad-based annular bulges and surrounding osteophytes flatten the ventral aspect of the thecal sac at the degenerated levels, more severe at the C4/5 level. Multilevel neural foraminal encroachment is present due to uncinate hypertrophy. SOFT TISSUES: See above. No prevertebral soft tissue swelling. VASCULATURE: Minimal vascular calcification is noted within the neck. MASTOID AIR CELLS: Nonspecific fluid noted within a few of the left mastoid air cells. Right mastoid air cells are clear. LUNG APICES: Biapical pleural parenchymal scarring. Visualized upper ribs are intact. CT/Spine Cervical without Contras IMPRESSION: 1. Midline thick-walled fluid collection within the subcutaneous fat overlying the mid to lower cervical spinous processes, worrisome for abscess in view of the thickened wall and surrounding fat stranding. Aspiration could be utilized to further evaluate for infection versus postoperative seroma. No extension of this posterior fluid collection into the epidural space. No lytic osseous lesion. 3. Previous left laminectomy from C3 to C6. 4. Multilevel cervical degenerative disc disease. Electronically Signed: Maninder Stapleton MD at 7:53 EDT ,
--- NOTE | 2023-07-20 05:33 | EX.ED.DYSGE1 ---
HPI History of Present Illness Chief Complaint: Wound Check Informant: patient and spouse/S.O. Narrative Narrative: Patient is a 58-year-old male with past medical history of hypertension and asthma as well as recent cervical spine surgery on June 16, 2023. He states he has been doing well and underwent physical therapy just 2 days ago. He states that this morning he noticed that the wound was leaking. He states this is new for him and with the changes he is concerned about potential infection and therefore comes in for evaluation. Otherwise he denies any trauma fevers chills nausea vomiting diarrhea or dysuria PFSH PFS Medical History History of esophageal cancer History of pulmonary embolus (PE) Hypertension Home Medications albuterol sulfate 90 mcg/actuation aerosol inhaler (ProAir HFA) 2 puff inhalation Q4H PRN PRN Sob &/Or Wheezing 02/01/15 [History Last Taken Unknown] metoprolol tartrate 50 mg tablet 100 mg PO DAILY 02/01/15 [History Last Taken 02/01/15] fluticasone 100 mcg-salmeterol 50 mcg/dose blistr powdr for inhalation 1 puff inhalation BID 05/06/20 [History Last Taken Unknown] lisinopril 40 mg tablet 30 mg PO DAILY 05/06/20 [History Last Taken Unknown] amoxicillin 875 mg-potassium clavulanate 125 mg tablet 1 tab PO BID 7 days #14 tabs 07/20/23 [Rx Last Taken Unknown] hydrochlorothiazide 12.5 mg capsule 12.5 mg PO DAILY 07/20/23 [History Last Taken Unknown] Allergy/AdvReac Type Severity Reaction Status Date / Time No Known Allergies Allergy Verified 07/20/23 05:10 Social History Smoking Status: Never smoker ROS ROS ED Constitutional Constitutional ED: Denies chills or fever(s) ENT ENT ED: Denies sore throat Cardiovascular Cardiovascular: Denies chest pain Respiratory/Chest Respiratory/Chest: Denies cough or dyspnea Gastrointestinal Gastrointestinal: Denies abdominal pain, diarrhea, nausea or vomiting Genitourinary Genitourinary ED: Denies dysuria Musculoskeletal Musculoskeletal: Reports neck pain; Denies myalgias Integumentary Reports other Details: Positive draining wound ; Denies rash Neurologic Neurologic: Denies headache(s), paresthesias or weakness Hematologic/Lymphatic Hematologic/Lymphatic: Denies easy bleeding or easy bruising EXAM Physical Exam Const Vital Signs: 07/20/23 05:11 07/20/23 05:19 07/20/23 05:41 Temperature 98.1 F Temperature Source Oral Pulse Rate 101 H 92 75 Respiratory Rate 16 18 Blood Pressure 194/156 H 197/100 H 187/60 H Blood Pressure Mean 168 132 102 Pulse Ox Oxygen Delivery Method 07/20/23 07:41 Temperature Temperature Source Pulse Rate 80 Respiratory Rate 18 Blood Pressure 170/95 H Blood Pressure Mean 120 Pulse Ox 97 Oxygen Delivery Method Room Air Positive well nourished and well developed General Appearance ED: well developed; Negative for pallor HEENT HEENT Narrative: Normocephalic atraumatic Eyes PERRL and EOMs intact bilaterally General Eye ED: Negative for scleral icterus Neck supple Neck Narrative: Patient has a surgical incision in the midline of the posterior cervical spine consistent with history of previous spinal surgery. At the base of the incision around C7-T11 there is mild dehiscence of the wound with some surrounding soft tissue swelling and erythema and warmth. Manual pressure applied at this site produces serosanguineous fluid with sebaceous material. No lymphangitic streaking No nuchal rigidity or meningeal signs Resp normal respiratory effort and clear to auscultation bilaterally Cardio regular rate and regular rhythm Back/Spine Back/Spine Narrative: Soft tissue changes of the cervical spine as documented above Extremity normal to inspection Neuro oriented x3, CN's II-XII intact bilaterally and no sensory deficits noted Sensorium / Orientation: alert Motor Exam: strength 5/5 throughout Psych mental status grossly normal Skin Skin Narrative: Soft tissue changes consistent with seroma/hematoma status post surgery of the cervical spine as documented above General Skin Exam: Negative for jaundice or pallor MDM MDM MDM Narrative Medical decision making narrative: Patient arrived to the ER hypertensive but has a past medical history of this and also reports whitecoat syndrome. Otherwise vitals are stable and he is afebrile. The physical exam is most consistent with a seroma and sebaceous cyst but has differential diagnosis also includes abscess versus cellulitis versus potential osteomyelitis or discitis I did elect to check basic laboratory studies. Patient's white count is normal at 8.1 his ESR is only slightly elevated at 28 and his CRP is also mildly elevated indicating inflammatory versus potential early infectious process. His lactic acid however is normal and that coupled with a normal white count and patient being afebrile indicates that the ESR and CRP are most likely inflammatory in nature. CT scan also showed no signs of osteomyelitis along the cervical spine. It did show a fluid collection concerning for abscess versus seroma. I feel this is most likely a seroma based on the fluid that was expressed from the patient and the fact he does not have an elevated white count or lactic acid or is febrile. However because this read I did reach out to his surgeon who agrees that he can be on antibiotics prophylactically and follow-up on an outpatient basis. However without physical exam findings to suggest systemic infection osteomyelitis or discitis I do not feel there is need for admission or transfer and he is otherwise safe for discharge History & Record Review Discussion w/independent historian: Patient and Significant other Lab Data Attestation: I reviewed the patient's lab results. Labs: Laboratory Results - last 24 hr 07/20/23 07/20/23 07/20/23 05:40 06:40 07:10 WBC 8.1 RBC 4.26 L Hgb 13.3 Hct 39.3 L MCV 92.3 MCH 31.2 MCHC 33.8 RDW Std Deviation 41.3 RDW Coeff of Portia 12.3 Plt Count 218 MPV 9.4 Immature Gran % (Auto) 0.700 Neut % (Auto) 68.6 Lymph % (Auto) 17.1 L [place] % (Auto) 12.0 H Eos % (Auto) 1.1 Baso % (Auto) 0.5 Absolute Neuts (auto) 5.6 Absolute Lymphs (auto) 1.38 Nucleated RBC % 0 ESR 28 H Sodium Cancelled Cancelled 133 L Potassium Cancelled Cancelled 3.9 Chloride Cancelled Cancelled 102 Carbon Dioxide Cancelled Cancelled 25.0 Anion Gap Cancelled Cancelled 6 BUN Cancelled Cancelled 19 H Creatinine Cancelled Cancelled 1.09 Estim Creat Clear Calc Cancelled Cancelled 88.73 Est GFR (MDRD) Af Amer Cancelled Cancelled 89 Est GFR (MDRD) Non-Af Cancelled Cancelled 73 BUN/Creatinine Ratio Cancelled Cancelled 17.4 Glucose Cancelled Cancelled 144 H Lactic Acid Cancelled 1.4 Calcium Cancelled Cancelled 9.1 C-React Prot Ext Range Cancelled Cancelled 24.90 H Radiography Diagnostic Testing: Clinical Impression(s) from Imaging Studies Cervical Spine CT 07/20/23 05:30 IMPRESSION: 1. Midline thick-walled fluid collection within the subcutaneous fat overlying the mid to lower cervical spinous processes, worrisome for abscess in view of the thickened wall and surrounding fat stranding. Aspiration could be utilized to further evaluate for infection versus postoperative seroma. No extension of this posterior fluid collection into the epidural space. No lytic osseous lesion. 3. Previous left laminectomy from C3 to C6. 4. Multilevel cervical degenerative disc disease. Electronically Signed: Maninder Stapleton MD at 7:53 EDT , Discharge Plan Triage Chief Complaint: Wound Check ED Provider: Leon Stanton Dx/Rx/DC Orders Clinical Impression: Postoperative dehiscence of skin wound, Cellulitis, Postoperative seroma, Hypertension Instructions: ED Seroma, Postsurgical Prescriptions: New amoxicillin-pot clavulanate 875-125 mg tablet 1 tab PO BID 7 Days Qty: 14 0RF No Action metoprolol tartrate 50 MG tablet 100 mg PO DAILY Patient Comments: blood pressure albuterol sulfate [ProAir HFA] 1 PUFF inhaler 2 puff inhalation Q4H PRN PRN (Reason: Sob &/Or Wheezing) Patient Comments: shortness of breath fluticasone propion-salmeterol 1 EACH blister with device 1 puff INHALATION BID Patient Comments: inhale 1 puff by mouth and INTO THE LUNGS twice a day lisinopril 40 MG tablet 30 mg PO DAILY hydrochlorothiazide 12.5 mg capsule 12.5 mg PO DAILY Primary Care Provider: MARIANNE BOLANOS Referrals: MARIANNE BOLANOS CRNP [Primary Care Provider] - Activity Restrictions/Additional Instructions: Your workup today is consistent with a postoperative seroma however as there is mild surrounding erythema developing cellulitis is a possibility and the safe plan of care is to take the prescribed antibiotic for the next 7 days. Follow-up with your surgeon for repeat evaluation and is okay if the wound continues to drain slightly. However if you have worsening symptoms or any further concerns please return to the ER for repeat evaluation I discussed the case with your surgeon Dr. Duffy. He will see you at his [place] office today at 11:15 AM. The address is [address] [place] [address] [place] [address] Disposition Disposition: Home, Self Care
[2023-07-20 05:41] VITALS: BP 187/60; PULSE 75; RESP 18
[2023-07-20 05:51] LABS: Absolute Lymphocyte Count 1.38 X10^3/uL (0.83-4.51); Absolute Neutrophil Count 5.6 X10^3/uL (2.0-7.7); Basophil# 0.04 X10^3/uL; Basophil% 0.5 % (0-1); Eosinophil# 0.09 X10^3/uL; Eosinophils% 1.1 % (0-5); Hematocrit 39.3 % (40-54); Hemoglobin 13.3 g/dL (13.0-16.5); Lymphocyte # 1.38 X10^3/ul (0.83-4.51); Lymphocyte % 17.1 % (19-41); Mean Corp Hgb Conc 33.8 g/dL (32-36); Mean Corpuscular Hgb 31.2 pg (27.0-32.0); Mean Corpuscular Volume 92.3 fL (80-94); Mean Platelet Vol. 9.4 fl (6.2-12.0); Monocyte# 0.97 X10^3/uL; NRBC Flagged by Analyzer 0 % (0-5); Neutrophil # 5.55 X10^3/uL (2.7-7.7); Neutrophil % 68.6 % (47-70); POSITIVE COUNT YES; Platelet Count 218 K/mm3 (150-450); RBC Distribution Width CV 12.3 % (11.6-14.6); RBC Distribution Width SD 41.3 fl (35.1-43.9); Red Blood Count 4.26 M/mm3 (4.6-6.2); White Blood Count 8.1 K/mm3 (4.4-11.0)
[2023-07-20 06:53] LABS: Erythrocyte Sedimentation Rate 28 mm/hr (0-20)
[2023-07-20 07:35] LABS: Anion Gap 6 (5-15); BUN 19 mg/dL (7-18); BUN/Creat Ratio 17.4 RATIO (10-20); Calcium,Total 9.1 mg/dL (8.5-10.1); Chloride 102 mmol/L (98-107); Creatinine, Serum 1.09 mg/dL (0.70-1.30); EST Glomerular Filtration Rate 73 mL/min (>60); Est Glom Filt Rate - Afr Amer 89 mL/min (>60); Estimated Creatinine Clearance 88.73 ml/min; Glucose 144 mg/dL (74-106); Potassium 3.9 mmol/L (3.5-5.1); Sodium Level 133 mmol/L (136-145)
[2023-07-20 07:41] VITALS: BP 170/95; PULSE 80; RESP 18; O2SAT 97
[2023-07-20 07:43] LABS: Lactic Acid 1.4 mmol/L (0.4-1.9)
[2023-07-20 08:39] VITALS: BP 162/81; PULSE 83; RESP 16; TEMP 36.6; O2SAT 97
== END 2023-07-20 09:00 | disposition home or self-care (01) ==
PROVIDERS: Emergency Provider Emergency Medicine; PCP Nurse Practitioner Adult Health; Visit Provider Emergency Medicine
DX: T81.31XA Disruption of external operation (surgical) wound, not elsewhere classified, initial encounter (principal); L76.32 Postprocedural hematoma of skin and subcutaneous tissue following other procedure; I10 Essential (primary) hypertension; L03.90 Cellulitis, unspecified; J45.909 Unspecified asthma, uncomplicated; X58.XXXA Exposure to other specified factors, initial encounter
CPT/HCPCS: 72125; 80048; 83605; 85025; 85652; 86140; 99283

== ENCOUNTER 2023-08-21 09:00 | Outpatient (RCR) | payer BC, SELFPAY ==
--- NOTE | 2023-07-10 13:54 | HP.PTEVAL ---
Patient's Visit Information Visit Information Visit Information: NICKY SARABIA is a 58 year old M referred to Physical Therapy by Dr. Ruben Dufyf MD with a diagnosis of Posterior decompression C3, 5, 5, 6, 7 B. Date of Evaluation: 07/10/23 Physical Therapist: BLAYNE Chinchilla Visit Plan Frequency: 2x /Week Duration: 6 Weeks Plan: 2X/ week for 4-6 weeks for postural and scapular exercises, c-spine AROM, L UE strength, business services associate strength with HEP HEP: shoulder rolls, scapular retraction, C-spine rotation and light extension ROM to tolerance..not pushing the ROM) Subjective Subjective: Two years ago he he started with tingling in L thumb and the L upper wrist is still numb. He has some stiffness on his L shoulder and his neck is stiff. He weaned off the neck collar. If he gets stiff he puts the collar on for 10 min and he is ok. He can not sleep on his back because of the incision. He feels that his recovery is slow but he feels that the needle is getting better. His L shoulder feels a little weak when lifting orange juice on the shelf. He is R handed. 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 He still feels stiff and crampy. He slept in the bed all night and woke up with dry mouth and could sleep on the R side but it irritated sleeping on the L shoulder and was 7/10. Pain neck pain: Pain Intensity (Out of 10): 2 L shoulder pain: Pain Intensity (Out of 10): 3 Objective Objective: R handed: Slip Dumper strength: R 105 and L 75 posture: sits with rounded shoulders and slight flexed head C-spine AROM: Rot B R 75 and L 60, Ext 50%, Flexion 100%, SB R 75% and L 50% UE AROM: full AROM UE MMT: R shoulder flexion 16.1 and L 13.2 R shoulder abd 16.3 and L 15.4 R shoulder ER 16 and L 12.4 R IR 15.7 and L 14. Balance/Special Test Scores Oswestry Neck Score: 23 Goals Goal 1:: I HEP Goal Time Frame: 4-6 Weeks Goal 2:: Increase C-spine AROM (C-spine AROM: Rot B R 75 and L 60, Ext 50%, Flexion 100%, SB R 75% and L 50%) Goal Time Frame: 4-6 Weeks Goal 3:: Increase L business services associate strength (at the time of the eval: Slip Dumper strength: R 105 and L 75) Goal Time Frame: 4-6 Weeks Goal 4:: Sit with upright posture during treatment sessions Goal Time Frame: 4-6 Weeks Rehabilitation Potential Rehabilitation Potential: Good Anticipated Interventions Patient/Client Instruction: Educate patient on: Condition and Plan of Care For the Purpose of:: To decrease pain, To decrease swelling/inflammation, To increase ROM, To improve nutrient delivery to tissue, To improve muscle performance and motor function, To improve ability to perform ADL's, To increase tolerance to activity/condition/position, To improve performance and independence with ADL's, To decrease level of supervision to perform tasks, To improve ability of physical actions for home/community/work/leisure, To improve health of tissue, To decrease soft tissue restriction and To increase flexibility/ROM Therapeutic Exercise to Include: Strength training, Postural training, Flexibilty training, Neuromotor development, Active ROM and Scapular Strength/Stabilization For the Purpose of:: To decrease pain, To decrease swelling/inflammation, To increase ROM, To improve nutrient delivery to tissue, To improve muscle performance and motor function, To improve ability to perform ADL's, To increase tolerance to activity/condition/position, To improve performance and independence with ADL's, To decrease level of supervision to perform tasks, To improve health of tissue, To decrease soft tissue restriction and To increase flexibility/ROM Manual Therapy Techniques to Include: Soft tissue mobilization For the Purpose of:: To decrease pain, To increase ROM, To improve nutrient delivery to tissue, To improve health of tissue, To decrease soft tissue restriction and To increase flexibility/ROM Cryotherapy (ice pack, ice massage): Yes Thermo therapy (hot pack): Yes For the Purpose of:: To decrease pain, To decrease swelling/inflammation, To improve nutrient delivery to tissue and To improve muscle performance and motor function Text: Thank you for the opportunity to evaluate your patient. For Medicare and Medicare HMO plans, please review the plan of care and approve it. It will need to be FAXED BACK to us at [phone] for Medicare purposes. For Medicare only, by signing this I certify the plan of care. Please let me know if there are questions or concerns regarding this plan of care. Physician Signature: Date:
--- NOTE | 2023-08-21 09:46 | HP.PTDCSUM ---
Discharge Summary D/C summary: It has been my pleasure to treat NICKY SARABIA referred by Dr. Ruben Duffy MD, with the diagnosis of Posterior decompression C3, 5, 5, 6, 7 B for a total of 12 visit(s). Discharge Date: 08/21/23 Please see the following information for a summary of their discharge status. Subjective Subjective: said that the pt was doing well. His scab keeps opening up and he is frustrated. Dr said to be patient and healing could take 6 months to a year. Pt is very happy with his care and his one on one attention. He reports that he had 5 star therapy here Pain neck pain: Pain Intensity (Out of 10): 0 L shoulder pain: Pain Intensity (Out of 10): 1 Overall Improvement % Improvement: 30 Objective Objective/Function: C-spine AROM: Rot B R 90 and L 90, Ext 50%, Flexion 100%, SB R 90% and L 90%) Fixture Relamper strength: R 105 and L 95 Goals Goal 1:: I HEP Goal Progress: Goal Met Goal 2:: Increase C-spine AROM (C-spine AROM: Rot B R 75 and L 60, Ext 50%, Flexion 100%, SB R 75% and L 50%) Goal Progress: Goal Met Goal 3:: Increase L hearing therapist strength (at the time of the eval: Fixture Relamper strength: R 105 and L 75) Goal Progress: Goal Met Goal 4:: Sit with upright posture during treatment sessions Goal Progress: Goal Met Plan Plan: DC PT to HEP and progression D/C Information Discharge Comments: DC PT to HEP d/c sentence: If there are questions or concerns regarding this patient's physical therapy, please feel free to call me at [phone]. Thank you for the referral of this patient. Sincerely, Alina Larsen, MPT Balance/Gait/Functional tests Balance/Special Test Scores Oswestry Neck Score: 7 Improvement % Improvement: 30
== END 2023-08-21 10:18 | disposition home or self-care (01) ==
LOC: PT 09:00
PROVIDERS: PCP Nurse Practitioner Adult Health; Referring Provider Orthopaedic Surgery Orthopaedic Surgery of the Spine; Visit Provider Orthopaedic Surgery Orthopaedic Surgery of the Spine
DX: Z98.890 Other specified postprocedural states (principal)
CPT/HCPCS: 97110; 97140; 97161